=== PATIENT | female | born 2000 ===

== ENCOUNTER 2021-11-08 12:25 | Inpatient (IN) | payer OTHER, MEDICAID ==
[2021-11-08 14:22] LABS: Hematocrit 38.1 % (30.3-42.9); Mean Corpuscular HGB Conc 32 % (30-34); Mean Corpuscular Volume 73 fl (79-97); Platelet Count 319 K/mm3 (140-440); Red Cell Distribution Width 17.3 % (13.2-15.2)
--- NOTE | 2021-11-08 14:22 | Ultrasound Report ---
ULTRASOUND OBSTETRIC LIMITED ULTRASOUND BIOPHYSICAL PROFILE INDICATION / CLINICAL INFORMATION: nrfht. Clinical Gestational Age (GA): 40.0 weeks.days COMPARISON: None available. FINDINGS: BREATHING MOVEMENT = 2 GROSS BODY MOVEMENT = 2 TONE = 2 QUALITATIVE AMNIOTIC FLUID VOLUME = 2 TOTAL BIOPHYSICAL SCORE = 8/8 HEART RATE (beats per minute): 152 AMNIOTIC FLUID INDEX (cm) = 6.0 (normal = 7-24 cm) PRESENTATION: Cephalic. ADDITIONAL FINDINGS: None. IMPRESSION: 1. Biophysical Score = 8/8 2. Slightly low amniotic fluid index. Signer Name: Kofi Zavala MD Signed: 11/08/2021 2:18 PM Workstation Name: [id number]
[2021-11-08] MEDS ORDERED: ePHEDrine SULFATE 50 MG/1 ML INJ IV PRN (14:32)
[2021-11-08] MEDS ORDERED: TERBUTALINE 1 MG/1 ML INJ SUB-Q PRN (14:32)
[2021-11-08] MEDS ORDERED: ACETAMINOPHEN 325 MG TAB PO PRN (14:32)
[2021-11-08] MEDS ORDERED: CARBOPROST TROMETHAMINE 250 MCG/1 ML INJ IM PRN (14:32)
[2021-11-08] MEDS ORDERED: NalbUPHINE 10 MG/1 ML INJ IV PRN (14:32)
[2021-11-08] MEDS ORDERED: LOPERAMIDE 2 MG CAP PO PRN (14:32)
[2021-11-08] MEDS ORDERED: MINERAL OIL 30 ML ORAL LIQD PO PRN (14:32)
[2021-11-08] MEDS ORDERED: ONDANSETRON 4 MG/2 ML INJ IV PRN (14:32)
[2021-11-08] MEDS ORDERED: METHYLERGONOVINE MALEATE 0.2 MG/ML VIAL IM PRN (14:32)
[2021-11-08] MEDS ORDERED: PROMETHAZINE 25 MG TAB PO PRN (14:32)
[2021-11-08] MEDS ORDERED: miSOPROStol 200 MCG TAB PR PRN (14:32)
[2021-11-08] MEDS ORDERED: LIDOCAINE (2%) 20 MG/1 ML VIAL 20 ML MDV INFILTRATI ONE (14:32)
[2021-11-08] MEDS ORDERED: OXYTOCIN 10 UNIT/1 ML INJ IM PRN (14:32)
[2021-11-08] MEDS ORDERED: fentaNYL 100 MCG/2 ML INJ IV PRN (14:32)
[2021-11-08 14:39] LABS: Alanine Aminotransferase 9 units/L (7-56); Uric Acid 2.8 mg/dL (3.5-7.6)
--- NOTE | 2021-11-08 14:58 | History and Physical Report ---
History of Present Illness Date of examination: 11/08/21 Chief complaint: Sent from clinic for decreased FM History of present illness: at 40.0wks by LMP c/w [facility]. care at [facility]. Pt admits to decreased movement, denies LOF or vag bleed or headache. pt admits to feeling ctx. labs with HIV, HepBsAg and RPR neg, rubella immune and Rh positive with neg antibody screen. Abnormal 1hrgtt with normal 3hrgtt Past History Past Medical History: other (obesity, anemia) Past Surgical History: no surgical history Family/Genetic History: none Social history: no significant social history - Obstetrical History Expected Date of Delivery: 11/08/21 Actual Gestation: 40 Week(s) 0 Day(s) : 1 Number of Living Children: 0 Medications and Allergies Allergies Allergy/AdvReac Type Severity Reaction Status Date / Time No Known Allergies Allergy Unverified 11/08/21 12:52 Active Meds: Active Medications Acetaminophen (Acetaminophen 325 Mg Tab) 650 mg PO Q4H PRN PRN Reason: Pain, Mild (1-3) Carboprost Tromethamine (Carboprost Tromethamine 250 Mcg/1 Ml Inj) 250 mcg IM ONCE PRN PRN Reason: Uterine Bleeding Ephedrine Sulfate (Ephedrine Sulfate 50 Mg/1 Ml Inj) 10 mg IV Q2M PRN PRN Reason: Hypotension Fentanyl (Fentanyl 100 Mcg/2 Ml Inj) 100 mcg IV Q2H PRN PRN Reason: Pain,Severe (7-10) LABOR PAIN Oxytocin/Sodium Chloride (Pitocin/Ns 30 Unit/500ml) 30 units in 500 mls @ 2 mls/hr IV TITR ADOLFO; Protocol Lactated Ringer's (Lactated Ringers) 1,000 mls @ 125 mls/hr IV DIRECT ADOLFO Oxytocin/Sodium Chloride (Pitocin/Ns 30 Unit/500ml) 30 units in 500 mls @ 40 mls/hr IV TITR ADOLFO; Protocol Lidocaine (Lidocaine (2%) 20 Mg/1 Ml Vial 20 Ml Mdv) 20 ml INFILTRATI ONCE ONE Stop: 11/08/21 14:33 Loperamide HCl (Loperamide 2 Mg Cap) 2 mg PO ONCE PRN PRN Reason: give with Hemabate Methylergonovine Maleate (Methylergonovine Maleate 0.2 Mg/Ml Vial) 0.2 mg IM ONCE PRN PRN Reason: Uterine Bleeding Mineral Oil (Mineral Oil 30 Ml Oral Liqd) 30 ml PO QHS PRN PRN Reason: Constipation Misoprostol (Misoprostol 200 Mcg Tab) 800 mcg AL ONCE PRN PRN Reason: Uterine Bleeding Nalbuphine HCl (Nalbuphine 10 Mg/1 Ml Inj) 10 mg IV Q2H PRN PRN Reason: Pain, Moderate (4-6) Ondansetron HCl (Ondansetron 4 Mg/2 Ml Inj) 4 mg IV Q8H PRN PRN Reason: Nausea And Vomiting Oxytocin (Oxytocin 10 Unit/1 Ml Inj) 10 unit IM ONCE PRN PRN Reason: Uterine Bleeding Promethazine HCl (Promethazine 25 Mg Tab) 25 mg PO Q6H PRN PRN Reason: Nausea And Vomiting Terbutaline Sulfate (Terbutaline 1 Mg/1 Ml Inj) 0.25 mg SUB-Q ONCE PRN PRN Reason: Hyperstimulation/Hypertonicity Review of Systems All systems: negative (ctx, decreased FM) - Vital Signs Vital signs: Vital Signs Pulse Pulse Ox 114 H 98 11/08/21 13:09 11/08/21 13:09 Temp Pulse Resp BP Pulse Ox 98.4 F 100 H 16 142/91 99 11/08/21 13:26 11/08/21 14:49 11/08/21 13:26 11/08/21 14:41 11/08/21 14:49 - Physical Exam Breasts: Positive: deferred Cardiovascular: Regular rate Lungs: Positive: Normal air movement Abdomen: Positive: soft Vulva: left: pigmented lesion (pt has 0.5cm raised skin vulvar cyst, non-tender) Vagina: Positive: normal moisture Uterus: Positive: enlarged Extremities: Positive: normal - Obstetrical FHR: category 1 Uterine Contraction Monitor Mode: External Cervical Dilatation: 2 Cervical Effacement Percentage: 70 station: -2 Uterine Contraction Pattern: Regular Uterine Contraction Intensity: Mild Results Result Diagrams: 11/08/21 14:06 11/08/21 14:06 Abnormal lab results 11/08/21 11/08/21 Range/Units 14:06 14:06 RBC 5.20 H (3.65-5.03) M/mm3 MCV 73 L (79-97) fl MCH 23 L (28-32) pg RDW 17.3 H (13.2-15.2) % Creatinine 0.4 L (0.6-1.2) mg/dL Uric Acid 2.8 L (3.5-7.6) mg/dL All other labs normal. Assessment and Plan Term IUP sent from clinic with decreased FM, obesity, GBS neg and JANET 6 at [facility] 1. Admit and augment with pitocin; PIH workup in triage wnl 2. Plan of care discussed with pt 3. May have IV pain med or epidural when desired. 4 Expect Plan of care discussed with pt
[2021-11-08] MEDS ORDERED: OXYTOCIN DRIP 30 UNITS/500 ML BAG IV SCH ×2 (15:00)
[2021-11-08] MEDS ORDERED: LACTATED RINGERS 1,000 ML IV SCH (15:15)
[2021-11-08 16:32] LABS: Mean Corpuscular HGB Conc 31 % (30-34); Mean Corpuscular Volume 74 fl (79-97); Platelet Count 316 K/mm3 (140-440); Red Blood Count 5.31 M/mm3 (3.65-5.03); Red Cell Distribution Width 17.3 % (13.2-15.2)
[2021-11-08 16:33] LABS: Hematocrit 39.2 % (30.3-42.9)
[2021-11-09] MEDS ORDERED: NALOXONE 0.4 MG/1 ML INJ IV PRN (00:14)
[2021-11-09] MEDS ORDERED: fentaNYL-BUPIV 2 MCG/ML-0.125% 200 MCG/100 ML BAG EPIDURAL SCH (00:14)
[2021-11-09] MEDS ORDERED: ePHEDrine SULFATE 50 MG/1 ML INJ IV PRN (00:14)
--- NOTE | 2021-11-09 00:20 | Anesthesia Consultation ---
Anesthesia Consult and Med Hx Date of service: 11/08/21 - Airway Anesthetic Teeth Evaluation: Good Mental/Hyoid Distance: Adequate Mallampati Class: Class II Intubation Access Assessment: Probably Good - Pulmonary Exam CTA: Yes - Cardiac Exam Cardiac Exam: RRR - Pre-Operative Health Status ASA Pre-Surgery Classification: ASA3 Proposed Anesthetic Plan: Epidural - Pulmonary Hx Smoking: No Hx Asthma: No Hx Respiratory Symptoms: No SOB: No COPD: No Home Oxygen Therapy: No Hx Pneumonia: No Hx Sleep Apnea: No - Cardiovascular System Hx Hypertension: No Hx Coronary Artery Disease: No Hx Heart Attack/AMI: No Hx Angina: No Hx Percutaneous Transluminal Coronary Angioplasty (PTCA): No Hx Cardia Arrhythmia: No Hx Pacemaker: No Hx Internal Defibrillator: No Hx Valvular Heart Disease: No Hx Heart Murmur: No Hx Peripheral Vascular Disease: No - Central Nervous System Hx Neuromuscular Disorder: No Hx Seizures: No CVA: No Hx Back Pain: No Hx Psychiatric Problems: No - Gastrointestinal Hx Ulcer: No Hx Gastroesophageal Reflux Disease: No - Endocrine Hx Renal Disease: No Hx End Stage Renal Disease: No Hx Cirrhosis: No Hx Liver Disease: No Hx Insulin Dependent Diabetes: No Hx Hypothyroidism: No Hx Hyperthyroidism: No - Hematic Hx Anemia: Yes (WITH MEDS) Hx Sickle Cell Disease: No - Other Systems Hx Alcohol Use: No Hx Substance Use: No Hx Cancer: No Hx Obesity: Yes
--- NOTE | 2021-11-09 00:20 | Anesthesia Day of Surgery ---
Anesthesia Day of Surgery - Day of Surgery Patient Examined: Yes Patient H&P Reviewed: Yes Patient is NPO: Yes Beta Blockers: No Cardiac Clearance: No Pulmonary Clearance: No Con's Test: N/A
--- NOTE | 2021-11-09 00:21 | Progress Note ---
Labor Epidural - Labor Epidural Start Time: 23:50 Stop Time: 23:55 Performed by:: VALORIE TATUM Procedure: Epidural Requested for Labor Pain. H&P and PT Chart reviewed and consent obtained. Time out performed and the procedure was explained, all questions answered. Patient was placed in a sitting position with monitors applied. The PTs back was prepped and draped in usual sterile fashion. The Skin was localized with 3 mL of 1% lidocaine at L3-L4. A 17-gauge Touhy epidural needle was advanced to ADRIANA with saline at 7 cm and no blood/CSF was noted via epidural needle. Epidural catheter was advanced to 12 cm. There was negative aspiration for blood and CSF in the catheter and negative response to a test dose of 3 ml 1.5% lidocaine w/ Epi and a sterile dressing was applied Patient tolerated the procedure well and there were no immediate complications noted.
[2021-11-09] MEDS ORDERED: LIDOCAINE PF 100 MG/5 ML (CARDIAC SYRINGE) IV ONE (05:02)
[2021-11-09] MEDS ORDERED: LIDOCAINE MPF (2%) 20 MG/1 ML VIAL 5 ML ONE (05:03)
[2021-11-09] MEDS ORDERED: LIDOCAINE (2%) 20 MG/1 ML VIAL 20 ML MDV INFILTRATI ONE (05:38)
--- NOTE | 2021-11-09 05:48 | Procedure Note ---
OB Delivery Note - Delivery Date of Delivery: 11/09/21 Surgeon: JOHN PAUL GOODMAN Estimated blood loss: 500cc - Vaginal Delivery presentation: vertex Delivery position: OA Intrapartum events: meconium Delivery induction: oxytocin Delivery augmentation: rupture of membranes Delivery monitor: external FHT, external uterine Route of delivery: Delivery placenta: spontaneous Delivery cord: nuchal cord, 3 umbilical vessels Episiotomy: none Delivery laceration: 2nd degree Delivery repair: vicryl (Second-degree perineal laceration repaired with 2-0 Juan Pablo ryl and 3-0 Vicryl) Anesthesia: local, epidural Delivery comments: 20-year-old primigravida at 40 weeks gestation underwent elective induction of labor. She progressed to complete cervical dilation. Membranes were artificially ruptured. Meconium was noted. The patient pushed. The head was delivered. Nuchal cord x1 was manually reduced. The remainder the infant was delivered atraumatically. Mouth and nose were bulb suctioned. Delayed cord clamping for 1 minute was performed. She produced a liveborn male infant. The was taken to the awaiting nursery team. Placenta was spontaneously extracted. Second-degree perineal laceration was repaired in multiple layers using 2-0 Vicryl and 3-0 Vicryl. All instruments removed from patient's vagina. Digital sweep of the vagina revealed no retained foreign bodies. The patient tolerated the procedure well. - A at 1 minute: 7 at 5 minutes: 8 Gender: Male
[2021-11-09] MEDS ORDERED: ACETAMINOPHEN 325 MG TAB PO PRN (05:53)
[2021-11-09] MEDS ORDERED: WITCH HAZEL/ GLYCERIN PAD TP PRN (05:53)
[2021-11-09] MEDS ORDERED: HYDROcodone/ACETAMINOPHEN 5-325 MG TAB PO PRN (05:53)
[2021-11-09] MEDS ORDERED: LANOLIN/ZINC/DIMETHICONE (LANSINOH) 7 GM TP PRN (05:53)
[2021-11-09] MEDS ORDERED: MAGNESIUM HYDROXIDE (MOM) ORAL LIQD UDC PO PRN (05:53)
[2021-11-09] MEDS ORDERED: BENZOCAINE/MENTHOL 20/0.5% TOP SPRAY 56 GM TP PRN (05:53)
[2021-11-09] MEDS ORDERED: OXYTOCIN DRIP 30,000 MILLIUNITS/500 ML BAG IV ONE (05:57)
--- NOTE | 2021-11-09 08:19 | Post Anesthesia Evaluation ---
- Post Anesthesia Evaluation Patient Participated: Yes Airway Patent: Yes Stable Respiratory Function: Yes Nausea/Vomiting: No Temp > 96.8F: Yes Pain Manageable: Yes Adequeate Hydration: Yes Anesthesia Complications: No Block Receding Appropriately: Yes Patient on Ventilator: No
[2021-11-09] MEDS: IBUPROFEN 800 MG TAB PO SCH ×3 (08:27→18:14)
[2021-11-09] MEDS: DOCUSATE SODIUM 100 MG CAP PO SCH (10:19)
[2021-11-10] MEDS: IBUPROFEN 800 MG TAB PO SCH ×3 (00:43→17:28)
[2021-11-10] MEDS: DOCUSATE SODIUM 100 MG CAP PO SCH (00:43)
[2021-11-10 06:59] LABS: Hematocrit 32.2 % (30.3-42.9); Hemoglobin 9.8 gm/dl (10.1-14.3); Mean Corpuscular HGB Conc 30 % (30-34); Mean Corpuscular Volume 74 fl (79-97); Platelet Count 238 K/mm3 (140-440); Red Blood Count 4.38 M/mm3 (3.65-5.03); Red Cell Distribution Width 17.5 % (13.2-15.2)
--- NOTE | 2021-11-10 13:58 | Progress Note ---
Assessment and Plan A: PPD # 1 -stable P: Discharge home today Discharge instructions given Subjective - Subjective Date of service: 11/10/21 Principal diagnosis: Patient reports: appetite normal [place]: doing well Objective - Vital Signs Latest vital signs: Vital Signs Temp Pulse Resp BP Pulse Ox Pulse Ox 11/10/21 08:14 98.7 F 103 H 20 127/78 99 11/10/21 07:00 99 11/09/21 23:37 97.7 F 81 18 100/60 99 11/09/21 23:00 99 11/09/21 16:04 97.8 F 101 H 20 118/71 98 Intake and Output 11/09/21 11/10/21 11/10/21 22:59 06:59 14:59 Intake Total 360 180 120 Output Total 400 Balance -40 180 120 Intake: Oral 120 Intake, Free Water 360 180 Output: Urine 400 Void 400 Other: Total, Intake Amount 120 Total, Output Amount 400 # Voids Void 2 1 1 - Exam Breasts: Present: deferred Cardiovascular: Present: Regular rate Lungs: Present: Clear to auscultation Abdomen: Present: soft Uterus: Present: fundal height below umbilicus Extremities: Present: normal Deep Tendon Reflex Grade: Normal +2 - Labs Labs: Abnormal lab results 11/10/21 Range/Units 06:44 WBC 13.8 H (4.5-11.0) K/mm3 Hgb 9.8 L (10.1-14.3) gm/dl MCV 74 L (79-97) fl MCH 22 L (28-32) pg RDW 17.5 H (13.2-15.2) %
--- NOTE | 2021-11-10 13:59 | Discharge Summary ---
Providers - Providers Date of Admission: 11/09/21 05:53 Date of discharge: 11/10/21 Attending physician: TANNER YO Primary care physician: TANNER YO Hospitalization Reason for admission: induction of labor Delivery: Laceration: 2nd degree Incision: intact complications: none Discharge diagnosis: IUP at term delivered baby: male Condition at discharge: Good Disposition: 01 HOME / SELF CARE / HOMELESS Plan - Provider Discharge Summary Activity: routine, no sex for 6 weeks, no heavy lifting 4 weeks, no strenuous exercise Diet: routine Instructions: routine Additional instructions: [] Smoking cessation referral if applicable(refer to patient education folder for contact #) [] Refer to [facility]'s [facility] Booklet Call your doctor immediately for: * Fever > 100.5 * Heavy vaginal bleeding ( >1 pad per hour) * Severe persistent headache * Shortness of breath * Reddened, hot, painful area to leg or breast * Drainage or odor from incision. * Keep incision clean and dry at all times and follow doctor's instructions regarding bathing/showering - Follow up plan Follow up: TANNER YO MD [Primary Care Provider] - 6 Weeks
[2021-11-10 18:10] VITALS: BP 127/84
== END 2021-11-10 17:48 | disposition home or self-care (01) | DRG 805 ==
LOC: TRG 12:25 → APU 12:27 → TRG 14:32 → UNDOADMIN 14:32 → APU 14:32 → LD 16:29 → APU 16:29 → LD 11-09 05:53 → OB 11-09 07:33 → LD 11-09 07:33
PROVIDERS: ADMIT Obstetrics & Gynecology; ATTEND Obstetrics & Gynecology
PROC: 10E0XZZ Delivery of Products of Conception, External Approach (ICD-10-PCS; principal; 2021-11-09)
PROC: 0KQM0ZZ Repair Perineum Muscle, Open Approach (ICD-10-PCS; 2021-11-09)
PROC: 3E0R3BZ Introduction of Anesthetic Agent into Spinal Canal, Percutaneous Approach (ICD-10-PCS; 2021-11-09)
PROC: 00HU33Z Insertion of Infusion Device into Spinal Canal, Percutaneous Approach (ICD-10-PCS; 2021-11-09)
PROC: 3E033VJ Introduction of Other Hormone into Peripheral Vein, Percutaneous Approach (ICD-10-PCS; 2021-11-09)
PROC: 10907ZC Drainage of Amniotic Fluid, Therapeutic from Products of Conception, Via Natural or Artificial Opening (ICD-10-PCS; 2021-11-09)
DX: O77.0 Labor and delivery complicated by meconium in amniotic fluid (principal); U07.1 COVID-19; Z37.0 Single live birth; O98.52 Other viral diseases complicating childbirth; O99.214 Obesity complicating childbirth; Z3A.40 40 weeks gestation of pregnancy; O36.8130 Decreased fetal movements, third trimester, not applicable or unspecified; O69.81X0 Labor and delivery complicated by cord around neck, without compression, not applicable or unspecified; O70.1 Second degree perineal laceration during delivery
CPT/HCPCS: 36415; 76815; 76819; 82565; 83615; 84450; 84460; 84550; 85014; 85018; 85027; 86592; 86850; 86900; 86901; G0378; J3490; J2300; J2590; J7120; U0003